=== PATIENT | female | born 1980 | race Caucasian/White ===

== ENCOUNTER 2017-08-16 08:10 | Day surgery (SDC) | payer OTHER ==
[~2017-08-16] VITALS: Ht 165.1 cm; Wt 86.1 kg
[~2017-08-16 08:10] MED LIST: ADIPEX-P37.5 M1 PO; ALTAVERA1 EACH PO; FIORICET,ESG1 TABLET PO; HYDROXYCHLOROQ200 MG PO; HYDROXYZINE PAM25 MG PO; LEVONORGESTREL1 EAC1 PO; LEVOTHYROXINE100 MCG PO; PHENTERMINE H37.5 MG PO; PLAQUENIL200 MG PO; SYNTHROID100 MCG PO; TEGRETOL200 MG PO
[2017-08-16 08:55] VITALS: BP 123/69
[2017-08-16] MEDS ORDERED: PERCOCET 5/31 TABLET PO (11:23)
[2017-08-16 13:10] VITALS: BP 116/56
[2017-08-16 14:00] VITALS: BP 111/72
== END 2017-08-16 14:36 | disposition home or self-care (01) ==
LOC: SDC 08:10
PROVIDERS: Obstetrics & Gynecology
PROC: 0UBC7ZX Excision of Cervix, Via Natural or Artificial Opening, Diagnostic (ICD-10-PCS; principal; 2017-08-16)
PROC: 0U574ZZ Destruction of Bilateral Fallopian Tubes, Percutaneous Endoscopic Approach (ICD-10-PCS; principal; 2017-08-16)
DX: Z30.2 Encounter for sterilization (principal); D06.9 Carcinoma in situ of cervix, unspecified; N93.0 Postcoital and contact bleeding; I10 Essential (primary) hypertension; M32.9 Systemic lupus erythematosus, unspecified; E03.9 Hypothyroidism, unspecified; Z80.0 Family history of malignant neoplasm of digestive organs; Z80.1 Family history of malignant neoplasm of trachea, bronchus and lung; Z80.42 Family history of malignant neoplasm of prostate; Z80.6 Family history of leukemia; Z87.891 Personal history of nicotine dependence
CPT/HCPCS: 84703; 88305; 88307; J0131; J0330; J1100; J1170; J1885; J2250; J2405; J2710; J3010; S0020